=== PATIENT | female | born 1995 | race Caucasian/White ===

== ENCOUNTER 2021-01-01 10:29 | Outpatient (CLI) | payer OTHER | END 2021-01-01 12:15 | disposition home or self-care (01) | LOC: GENOP 10:29 | DX: O47.03 False labor before 37 completed weeks of gestation, third trimester (principal); O99.343 Other mental disorders complicating pregnancy, third trimester; F41.9 Anxiety disorder, unspecified; F32.9 Major depressive disorder, single episode, unspecified; O99.613 Diseases of the digestive system complicating pregnancy, third trimester; K58.9 Irritable bowel syndrome, unspecified; O99.353 Diseases of the nervous system complicating pregnancy, third trimester; G43.909 Migraine, unspecified, not intractable, without status migrainosus; Z3A.29 29 weeks gestation of pregnancy | CPT/HCPCS: 81001; G0463 ==

== ENCOUNTER 2021-02-07 19:02 | Outpatient (CLI) | payer OTHER | END 2021-02-07 22:06 | disposition home or self-care (01) | LOC: GENOP 19:02 | DX: O47.03 False labor before 37 completed weeks of gestation, third trimester (principal); O99.353 Diseases of the nervous system complicating pregnancy, third trimester; G43.909 Migraine, unspecified, not intractable, without status migrainosus; O99.343 Other mental disorders complicating pregnancy, third trimester; F41.9 Anxiety disorder, unspecified; O99.613 Diseases of the digestive system complicating pregnancy, third trimester; K58.9 Irritable bowel syndrome, unspecified; Z3A.29 29 weeks gestation of pregnancy | CPT/HCPCS: 81001; G0463 ==

== ENCOUNTER 2021-03-08 05:30 | Inpatient (IN) | payer OTHER ==
[~2021-03-08] VITALS: Ht 160 cm; Wt 93.9 kg
[2021-03-08] MEDS ORDERED: VITAMIN B-625 MG PO (06:18)
[2021-03-08] MEDS ORDERED: PRENATABS FA T1 EACH PO (06:19)
[2021-03-08] MEDS ORDERED: PEPCID20 MG PO (06:20)
[2021-03-08] MEDS ORDERED: UNISOM25 MG PO (06:20)
[2021-03-08] MEDS ORDERED: IBUPROFEN600 MG PO (09:54)
[2021-03-08] MEDS ORDERED: DOCUSATE SODIU100 MG PO (09:54)
[2021-03-08] MEDS ORDERED: HYDROCODON-ACE1 EAC4 PO (09:54)
[2021-03-09 05:37] LABS: HEMOGLOBIN 9.3 gm/dl (12.3-15.3)
== END 2021-03-09 16:44 | disposition home or self-care (01) | DRG 788 ==
LOC: OB 05:30
PROVIDERS: Obstetrics & Gynecology; ADMIT Obstetrics & Gynecology
PROC: 4A1HXCZ Monitoring of Products of Conception, Cardiac Rate, External Approach (ICD-10-PCS; 2021-03-08)
PROC: 10D00Z1 Extraction of Products of Conception, Low, Open Approach (ICD-10-PCS; principal; 2021-03-08 07:30)
DX: O34.211 Maternal care for low transverse scar from previous cesarean delivery (principal); Z3A.39 39 weeks gestation of pregnancy; Z37.0 Single live birth; Z20.822 Contact with and (suspected) exposure to COVID-19; O99.344 Other mental disorders complicating childbirth; O99.62 Diseases of the digestive system complicating childbirth; F41.9 Anxiety disorder, unspecified; K58.9 Irritable bowel syndrome, unspecified; Z83.3 Family history of diabetes mellitus; Z80.2 Family history of malignant neoplasm of other respiratory and intrathoracic organs; Z90.49 Acquired absence of other specified parts of digestive tract
CPT/HCPCS: 36415; 81001; 85014; 85018; 85025; 90715; C9113; J0690; J1885; J2274; J2405; J2590; J3010; J7120; U0002

== ENCOUNTER 2021-12-03 12:57 | Emergency (ER) | payer OTHER ==
[~2021-12-03 12:57] MED LIST: DOCUSATE SODIU100 MG PO; HYDROCODON-ACE1 EAC4 PO; IBUPROFEN600 MG PO; PEPCID20 MG PO; PRENATABS FA T1 EACH PO; UNISOM25 MG PO; VITAMIN B-625 MG PO
[2021-12-03 14:28] LABS: HEMOGLOBIN 14.2 gm/dl (12.3-15.3); RED BLOOD COUNT 4.66 M/UL (4.00-5.10); WHITE BLOOD COUNT 7.1 K/UL (4.5-11.0)
[2021-12-03 14:45] LABS: BUN/CREATININE RATIO 16 (0-10)
[2021-12-03] MEDS ORDERED: DIFLUCAN150 MG PO ×2 (16:55→17:31)
[2021-12-03] MEDS ORDERED: CEPHALEXIN500 M1 PO ×2 (16:55→17:31)
== END 2021-12-03 18:00 | disposition home or self-care (01) ==
LOC: ER1 12:57
PROVIDERS: Physician Assistant
DX: N39.0 Urinary tract infection, site not specified (principal); R51.9 Headache, unspecified; R05.9 Cough, unspecified; R09.81 Nasal congestion; Z79.899 Other long term (current) drug therapy; F17.290 Nicotine dependence, other tobacco product, uncomplicated; Z20.822 Contact with and (suspected) exposure to COVID-19
CPT/HCPCS: 0240U; 70450; 71045; 80053; 80307; 81001; 82550; 82553; 84484; 84703; 85025; 93005; 96374; 96375; 99285; G0480; J1200; J1885; J2765